=== PATIENT | male | born 1960 | race African-American/Black ===

== ENCOUNTER → 2016-09-17 | Outpatient (CLI) | payer MEDICARE, MEDICAID | END | disposition home or self-care (01) | LOC: MAMMO 09:45 | PROVIDERS: ATTEND Internal Medicine Nephrology | DX: N63 Unspecified lump in breast (principal); Z86.11 Personal history of tuberculosis | CPT/HCPCS: G0204 ==

== ENCOUNTER → 2016-10-10 | Outpatient (CLI) | payer MEDICARE, MEDICAID | END | disposition home or self-care (01) | LOC: US 10-07 13:00 | PROVIDERS: ATTEND Internal Medicine Nephrology | DX: N63 Unspecified lump in breast (principal) | CPT/HCPCS: 76641 ==

== ENCOUNTER → 2016-11-12 | Day surgery (SDC) | payer MEDICARE, MEDICAID ==
[~2016-11-12] MED LIST: SODIUM BICARBONATE 4% (2.4MEQ) 5ML VIAL IV ONE
== END | disposition home or self-care (01) ==
LOC: RAD 08:42
PROVIDERS: ATTEND Surgery
DX: N63 Unspecified lump in breast (principal)
CPT/HCPCS: 19083; 88305; A4648; J3490

== ENCOUNTER → 2017-03-17 | Outpatient (CLI) | payer MEDICARE, MEDICAID ==
[~2017-03-17] MED LIST changes: +AMLO10TA80 PO; +CARV25TA47 PO; +CHOL100046 PO; +CLON0.1T PO; +LISI40TA4 PO; +MEDICAL MARIJUANA; +SODI325T PO; -SODIUM BICARBONATE 4% (2.4MEQ) 5ML VIAL IV ONE
== END | disposition home or self-care (01) ==
LOC: RAD 12:56
PROVIDERS: ATTEND Internal Medicine Nephrology
DX: J90 Pleural effusion, not elsewhere classified (principal); I51.7 Cardiomegaly; R94.31 Abnormal electrocardiogram [ECG] [EKG]; R06.02 Shortness of breath
CPT/HCPCS: 71020; 93005

== ENCOUNTER 2017-05-12 00:59 | Inpatient (IN) | payer MEDICARE, MEDICAID ==
[2017-05-12] VITALS (8 sets, daily range): BP systolic 164–190; BP diastolic 83–108
[~2017-05-12] VITALS: Ht 177.8 cm; Wt 71.7 kg
[2017-05-12] MEDS ORDERED: ASPIRIN 81MG TABLET PO STA (01:03)
[2017-05-12] MEDS ORDERED: NITROGLYCERIN OINT 1GM/INCH UDPKT TD STA (01:03)
[2017-05-12 01:37] LABS: HEMATOCRIT. 35.2 % (42.0-52.0); HEMOGLOBIN. 11.6 g/dL (14.0-18.0); MEAN CORPUSCULAR HEMOGLOBIN 30.1 pg (28.0-32.0); MEAN CORPUSCULAR VOLUME 91.6 fL (80.0-94.0); MEAN PLATELET VOLUME 6.9 fl (7.4-10.4); PLATELET 232 x1000/uL (130-400); RED BLOOD CELL COUNT 3.84 mill/uL (4.7-6.1); RED CELL DISTRIBUTION WIDTH 16.5 % (11.6-14.6)
[2017-05-12 01:42] LABS: INR 1.2; PARTIAL THROMBOPLASTIN TIME 27.8 sec (23.4-31.0); PROTHROMBIN TIME 12.4 sec (9.4-11.6)
[2017-05-12 01:51] LABS: CARBON DIOXIDE 24 mEq/L (21-32); CHLORIDE 101 mEq/L (98-107); TROPONIN I 0.06 ng/mL (0.00-0.04)
[2017-05-12] MEDS ORDERED: HYDRALAZINE 20MG/ML VIAL IV ONE (02:30)
[2017-05-12 02:33] LABS: PLATELET ESTIMATE NORMAL
[2017-05-12 03:17] LABS: BG BASE EXCESS 0.1 mmol/L (-2.0-2.0); BG BILEVEL POS AIRWAY PRESSURE 15/5; BG CARBOXYHEMOGLOBIN 0.5 % (0.5-1.5); BG DEOXYHEMOGLOBIN 9.3 % (0.0-5.0); BG FRACTION INSPIRED OXYGEN 100; BG HCO3 ACT 25.7 mmol/L (22.0-26.0); BG METHEMOGLOBIN 0.4 % (0.0-1.5); BG OXYGEN SATURATION 90.6 % (92.0-98.5); BG OXYHEMOGLOBIN 89.8 % (94.0-97.0); BG PCO2 45.3 mmHg (35.0-45.0); BG PH 7.371 (7.350-7.450); BG PO2 63.3 mmHg (75.0-100.0); BG SAMPLE SITE LEFT RADIAL; BG TOTAL HEMOGLOBIN 11.8 g/dL (12.0-18.0); BG VENT MODE MASK - BIPAP
[2017-05-12] MEDS ORDERED: HYDRALAZINE 20MG/ML VIAL IV NR (03:45)
[2017-05-12] MEDS ORDERED: ENOXAPARIN 40MG/0.4ML SYR SUBCUT SCH (04:00)
[2017-05-12] MEDS ORDERED: ONDANSETRON HCL 4MG/2ML VIAL IV PRN (04:00)
[2017-05-12] MEDS ORDERED: CLONIDINE 0.1MG TABLET PO PRN (04:00)
[2017-05-12] MEDS ORDERED: ACETAMINOPHEN 325MG TABLET PO PRN (04:00)
[2017-05-12] MEDS: PIPERACILLIN/TAZ 2.25G PREMIX 50 ML IV SCH (04:00)
[2017-05-12] MEDS ORDERED: MORPHINE SULFATE 2 MG/ML CPJ (NOT FOR IM USE) IV PRN (04:00)
[2017-05-12] MEDS ORDERED: IPRATROPIUM/ALBUTEROL 0.5-3(2.5)MG/3ML NEB INH PRN (04:00)
[2017-05-12] MEDS ORDERED: ENOXAPARIN 30MG/0.3ML SYR SUBCUT NR (05:45)
[2017-05-12] MEDS ORDERED: PIPERACILLIN/TAZ 2.25G PREMIX 50 ML IV NR (06:00)
[2017-05-12] MEDS: SODIUM BICARBONATE 650 MG TABLET PO SCH ×2 (13:13→17:23)
[2017-05-12] MEDS ORDERED: PIPERACILLIN/TAZ 2.25G PREMIX 50 ML IV SCH (14:00)
[2017-05-12] MEDS ORDERED: CARVEDILOL 25MG TABLET PO SCH ×2 (14:25→21:00)
[2017-05-12] MEDS ORDERED: AMLODIPINE 10MG TABLET PO SCH (14:25)
[2017-05-12] MEDS ORDERED: CLONIDINE 0.1MG TABLET PO SCH (21:00)
[2017-05-12] MEDS ORDERED: LISINOPRIL 40MG TABLET PO SCH (21:00)
[2017-05-13] MEDS ORDERED: AMLODIPINE 10MG TABLET PO SCH (09:00)
[2017-05-13] MEDS ORDERED: ENOXAPARIN 30MG/0.3ML SYR SUBCUT SCH (09:00)
[2017-05-13] MEDS ORDERED: CHOLECALCIFEROL (D3) 1000 UNIT TABLET PO SCH (09:00)
== END 2017-05-12 17:44 | disposition left against medical advice (07) | DRG 291 ==
LOC: ER 00:59 → 3WST 03:48 → EDBEDREQTM 03:54 → EDBEDREQ 03:54 → ENRESERV 06:05
PROVIDERS: ADMIT Internal Medicine Nephrology; ATTEND Internal Medicine Nephrology
PROC: 5A09357 Assistance with Respiratory Ventilation, Less than 24 Consecutive Hours, Continuous Positive Airway Pressure (ICD-10-PCS; principal; 2017-05-12)
PROC: 5A1D70Z Performance of Urinary Filtration, Intermittent, Less than 6 Hours Per Day (ICD-10-PCS; 2017-05-12)
DX: I13.2 Hypertensive heart and chronic kidney disease with heart failure and with stage 5 chronic kidney disease, or end stage renal disease (principal); N18.6 End stage renal disease; J96.00 Acute respiratory failure, unspecified whether with hypoxia or hypercapnia; I50.43 Acute on chronic combined systolic (congestive) and diastolic (congestive) heart failure; D72.829 Elevated white blood cell count, unspecified; Z99.2 Dependence on renal dialysis
CPT/HCPCS: 36415; 36600; 71010; 80053; 82375; 82805; 83880; 84484; 85025; 85610; 85730; 87040; 93005; 94660; 96365; 96372; 96375; 99291; J0360; J1650; J2543; J7030; J7050; J7620

== ENCOUNTER → 2017-07-17 | Outpatient (CLI) | payer MEDICARE, MEDICAID | END | disposition home or self-care (01) | LOC: RAD 10:05 | PROVIDERS: ATTEND Internal Medicine Nephrology | DX: J90 Pleural effusion, not elsewhere classified (principal); J44.9 Chronic obstructive pulmonary disease, unspecified; I51.7 Cardiomegaly; N18.6 End stage renal disease | CPT/HCPCS: 71045 ==

== ENCOUNTER 2018-04-26 06:29 | Inpatient (IN) | payer MEDICARE, MEDICAID ==
[2018-04-26] VITALS (9 sets, daily range): BP systolic 119–216; BP diastolic 83–118
[~2018-04-26] VITALS: Ht 170.2 cm; Wt 56.7 kg
[2018-04-26 07:14] LABS: BG BASE EXCESS 1.8 mmol/L (-2.0-2.0); BG BILEVEL POS AIRWAY PRESSURE 15/5; BG DEOXYHEMOGLOBIN 8.9 % (0.0-5.0); BG FRACTION INSPIRED OXYGEN 100; BG HCO3 ACT 28.5 mmol/L (22.0-26.0); BG OXYGEN SATURATION 90.8 % (92.0-98.5); BG OXYHEMOGLOBIN 88.1 % (94.0-97.0); BG PCO2 54.5 mmHg (35.0-45.0); BG PH 7.336 (7.350-7.450); BG PO2 67.6 mmHg (75.0-100.0); BG SAMPLE SITE LEFT BRACHIAL; BG TOTAL HEMOGLOBIN 11.1 g/dL (12.0-18.0); BG VENT MODE MASK - BIPAP
[2018-04-26 07:15] LABS: HEMATOCRIT. 32.5 % (42.0-52.0); MEAN CORPUSCULAR VOLUME 97.8 fL (80.0-94.0); MEAN PLATELET VOLUME 6.8 fl (7.4-10.4); PLATELET 190 x1000/uL (130-400); RED BLOOD CELL COUNT 3.32 mill/uL (4.7-6.1); RED CELL DISTRIBUTION WIDTH 14.6 % (11.6-14.6)
[2018-04-26 07:25] LABS: CHLORIDE 101 mEq/L (98-107)
[2018-04-26 07:51] LABS: PLATELET ESTIMATE NORMAL
[2018-04-26] MEDS ORDERED: FUROSEMIDE 100MG/10ML VIAL IV STA (08:05)
[2018-04-26] MEDS ORDERED: ALBUTEROL (0.083%) 2.5MG/3ML NEB HHN ONE (08:15)
[2018-04-26] MEDS ORDERED: SODIUM BICARBONATE 8.4% 1 MEQ/ML 50ML SYR IV ONE (08:15)
[2018-04-26] MEDS ORDERED: DEXTROSE 50% WATER 50ML SYRINGE IV ONE (08:15)
[2018-04-26] MEDS ORDERED: INSULIN REGULAR (HUMULIN R) 300UNITS/3ML IV ONE (08:15)
[2018-04-26] MEDS ORDERED: CALCIUM CHLORIDE 1GM/10ML SYR IV ONE (08:15)
[2018-04-26] MEDS: SEVELAMER CARBONATE 800 MG TABLET PO SCH ×2 (12:20→16:56)
[2018-04-26] MEDS ORDERED: ACETAMINOPHEN 500MG TABLET PO PRN (12:30)
[2018-04-26] MEDS: CARVEDILOL 25MG TABLET PO SCH ×2 (16:56→20:48)
[2018-04-26] MEDS: DOCUSATE SODIUM 250MG CAPSULE PO SCH (16:57)
[2018-04-26] MEDS: AMLODIPINE 10MG TABLET PO SCH (16:57)
[2018-04-26 19:36] LABS: HEMATOCRIT. 30.7 % (42.0-52.0); HEMOGLOBIN. 10.5 g/dL (14.0-18.0); MEAN CORPUSCULAR VOLUME 96.3 fL (80.0-94.0); PLATELET 160 x1000/uL (130-400); RED BLOOD CELL COUNT 3.18 mill/uL (4.7-6.1); RED CELL DISTRIBUTION WIDTH 14.4 % (11.6-14.6)
[2018-04-26 20:03] LABS: PLATELET ESTIMATE NORMAL
[2018-04-26] MEDS: CLONIDINE 0.1MG TABLET PO SCH (20:47)
[2018-04-26] MEDS: LISINOPRIL 40MG TABLET PO SCH (20:48)
[2018-04-26] MEDS ORDERED: CARVEDILOL 25MG TABLET PO SCH (21:00)
[2018-04-26] MEDS ORDERED: EPOETIN ALFA 4000UNITS/ML VIAL SUBCUT SCH (21:00)
[2018-04-27] VITALS (9 sets, daily range): BP systolic 153–183; BP diastolic 86–103
[2018-04-27 07:24] LABS: HEMATOCRIT. 30.1 % (42.0-52.0); HEMOGLOBIN. 10.3 g/dL (14.0-18.0); MEAN CORPUSCULAR HEMOGLOBIN 33.5 pg (28.0-32.0); MEAN CORPUSCULAR VOLUME 97.6 fL (80.0-94.0); MEAN PLATELET VOLUME 7.4 fl (7.4-10.4); PLATELET 139 x1000/uL (130-400); RED BLOOD CELL COUNT 3.08 mill/uL (4.7-6.1); RED CELL DISTRIBUTION WIDTH 14.3 % (11.6-14.6)
[2018-04-27] MEDS: CARVEDILOL 25MG TABLET PO SCH (09:00)
[2018-04-27] MEDS ORDERED: CHOLECALCIFEROL (D3) 1000 UNIT TABLET PO SCH (09:00)
[2018-04-27] MEDS ORDERED: FOLIC ACID/VITAMIN B COMP W-C TABLET PO SCH (09:00)
[2018-04-27] MEDS ORDERED: AMLODIPINE 10MG TABLET PO SCH ×2 (09:00→09:45)
[2018-04-27] MEDS: DOCUSATE SODIUM 250MG CAPSULE PO SCH (09:02)
[2018-04-27] MEDS: SEVELAMER CARBONATE 800 MG TABLET PO SCH ×2 (09:03→12:19)
[2018-04-27 11:45] LABS: PLATELET ESTIMATE NORMAL
[2018-04-27] MEDS: AMLODIPINE 10MG TABLET PO SCH (12:19)
[2018-04-27] MEDS: CLONIDINE 0.1MG TABLET PO SCH (12:19)
[2018-04-27] MEDS: LISINOPRIL 40MG TABLET PO SCH (12:19)
[2018-04-27 14:01] LABS: BG BASE EXCESS 2.6 mmol/L (-2.0-2.0); BG CARBOXYHEMOGLOBIN 1.2 % (0.5-1.5); BG DEOXYHEMOGLOBIN 10.3 % (0.0-5.0); BG HCO3 ACT 26.2 mmol/L (22.0-26.0); BG METHEMOGLOBIN 0.1 % (0.0-1.5); BG OXYGEN SATURATION 89.6 % (92.0-98.5); BG OXYHEMOGLOBIN 88.4 % (94.0-97.0); BG PCO2 36.8 mmHg (35.0-45.0); BG PH 7.471 (7.350-7.450); BG SAMPLE SITE LEFT RADIAL; BG TOTAL HEMOGLOBIN 11.3 g/dL (12.0-18.0); BG VENT MODE NASAL CANNULA
[2018-04-27] MEDS ORDERED: CARVEDILOL 25MG TABLET PO SCH (21:00)
== END 2018-04-27 17:05 | disposition home or self-care (01) | DRG 291 ==
LOC: ER 06:29 → 3WST 08:36 → EDBEDREQ 08:39 → ENRESERV 09:51
PROVIDERS: ADMIT Internal Medicine; ATTEND Internal Medicine
PROC: 5A09457 Assistance with Respiratory Ventilation, 24-96 Consecutive Hours, Continuous Positive Airway Pressure (ICD-10-PCS; principal; 2018-04-26)
PROC: 5A1D70Z Performance of Urinary Filtration, Intermittent, Less than 6 Hours Per Day (ICD-10-PCS; 2018-04-26)
DX: I13.2 Hypertensive heart and chronic kidney disease with heart failure and with stage 5 chronic kidney disease, or end stage renal disease (principal); N18.6 End stage renal disease; N25.81 Secondary hyperparathyroidism of renal origin; I50.40 Unspecified combined systolic (congestive) and diastolic (congestive) heart failure; D64.9 Anemia, unspecified; E55.9 Vitamin D deficiency, unspecified; E87.5 Hyperkalemia; R00.0 Tachycardia, unspecified; Z99.2 Dependence on renal dialysis; Z79.899 Other long term (current) drug therapy
CPT/HCPCS: 36415; 36600; 71045; 80048; 82375; 82805; 82962; 83880; 84484; 93005; 93306; 99285; J0885; J1815; J1940; J3490; J7030

== ENCOUNTER 2022-05-08 11:12 | Emergency (ER) | payer BC, MEDICAID ==
[~2022-05-08] VITALS: Ht 175.3 cm; Wt 66.0 kg
[~2022-05-08 11:12] MED LIST changes: +LISI40TA13 PO; -LISI40TA4 PO
[2022-05-08 11:23] VITALS: BP 139/75
== END 2022-05-08 16:31 | disposition left against medical advice (07) ==
LOC: ER 11:12
DX: T82.41XA Breakdown (mechanical) of vascular dialysis catheter, initial encounter (principal); Y84.1 Kidney dialysis as the cause of abnormal reaction of the patient, or of later complication, without mention of misadventure at the time of the procedure; Y92.89 Other specified places as the place of occurrence of the external cause; I12.0 Hypertensive chronic kidney disease with stage 5 chronic kidney disease or end stage renal disease; N18.6 End stage renal disease; Z99.2 Dependence on renal dialysis
CPT/HCPCS: 99281